=== PATIENT | female | born 1965 | race Caucasian/White ===

== ENCOUNTER 2019-09-21 15:53 | Emergency (ER) | payer OTHER ==
[2019-09-21 16:17] VITALS: BP 160/101
--- NOTE | 2019-09-21 16:37 | PHYS DOC ---
Past History Past Medical History: Hypothyroid Past Surgical History: Hysterectomy Alcohol Use: None Drug Use: None Adult General Chief Complaint Chief Complaint: LACERATION/AVULSION HPI HPI 54-year-old female presents with an injury to her left middle finger. She states she slammed her finger in a storm window opening a large laceration on the volar aspect of her third finger. She denies any other injuries. She is unsure when when her tetanus shot was. She states the pain is severe and made worse with any movement.[] Review of Systems Review of Systems Constitutional: Denies fever or chills [] Eyes: Denies change in visual acuity, redness, or eye pain [] HENT: Denies nasal congestion or sore throat [] Respiratory: Denies cough or shortness of breath [] Cardiovascular: No additional information not addressed in HPI [] GI: Denies abdominal pain, nausea, vomiting, bloody stools or diarrhea [] : Denies dysuria or hematuria [] Musculoskeletal: Denies back pain or joint pain [] Integument: Per history of present illness[] Neurologic: Denies headache, focal weakness or sensory changes [] Endocrine: Denies polyuria or polydipsia [] All other systems were reviewed and found to be within normal limits, except as documented in this note. Current Medications Current Medications Current Medications Medications (Trade) Dose Ordered Sig/Lana Start Time Stop Time Status Last Admin Dose Admin Ondansetron HCl (Zofran Odt) 4 mg 1X ONCE 09/21/19 16:45 09/21/19 16:46 UNV Oxycodone/ Acetaminophen (Percocet 5/325) 2 tab 1X ONCE 09/21/19 16:45 09/21/19 16:46 UNV Allergies Allergies Allergies Coded Allergies Type Severity Reaction Last Updated Verified No Known Drug Allergies 09/21/19 No Physical Exam Physical Exam Constitutional: Well developed, well nourished, moderate distress, non-toxic appearance. [] HENT: Normocephalic, atraumatic, bilateral external ears normal, oropharynx moist, no oral exudates, nose normal. [] Eyes: PERRLA, EOMI, conjunctiva normal, no discharge. [] Neck: Normal range of motion, no tenderness, supple, no stridor. [] Cardiovascular:Heart rate regular rhythm, no murmur [] Lungs & Thorax: Bilateral breath sounds clear to auscultation [] Abdomen: Bowel sounds normal, soft, no tenderness, no masses, no pulsatile masses. [] Skin: See laceration description below[] Back: No tenderness, no CVA tenderness. [] Extremities: There is a 4 cm laceration on the flexor aspect of the left third finger that starts proximal to the DIP crosses the joint and in his on the medial aspect of the pad. [] Neurologic: Alert and oriented X 3, normal motor function, normal sensory function, no focal deficits noted. [] Psychologic: Anxious. [] Current Patient Data Vital Signs Vital Signs Date Time Temp Pulse Resp B/P (MAP) Pulse Ox O2 Delivery O2 Flow Rate FiO2 09/21/19 16:17 65 18 96 Room Air EKG EKG [] Radiology/Procedures Radiology/Procedures [] Course & Med Decision Making Course & Med Decision Making Pertinent Labs and Imaging studies reviewed. (See chart for details) [Procedure: Laceration repair left middle finger A digital block was performed using a total of 4 mL of 1% lidocaine without epinephrine with good anesthesia then the wound was scrubbed using water and Hibiclens. I inspected the wound in a bloodless field for foreign body there was none. The patient was able to flex the DIP with no difficulty. After excellent anesthesia was obtained 7 simple interrupted 5-0 Ethilon sutures were placed with good approximation. Patient tolerated the procedure well. Neosporin was applied and a dressing was placed.] Dragon Disclaimer Dragon Disclaimer This electronic medical record was generated, in whole or in part, using a voice recognition dictation system. Departure Departure: Impression: Primary Impression: Finger laceration Disposition: 01 HOME, SELF-CARE Condition: IMPROVED Referrals: PCP,NO (PCP) Patient Instructions: Fingertip Laceration, Laceration Care, Adult Additional Instructions: Return to the emergency department in 7 days for suture removal. Scripts Hydrocodone Bit/Acetaminophen (NORCO 5-325 TABLET) 1 Each Tablet 1-2 TAB PO Q4-6HRS for PAIN, #6 TAB Prov: CHANTAL HORN DO 09/21/19 Problem Qualifiers Primary Impression: Finger laceration Encounter type: initial encounter Finger: middle finger Damage to nail status: without damage Foreign body presence: without foreign body Laterality: left Qualified Codes: S61.213A - Laceration without foreign body of left middle finger without damage to nail, initial encounter CHANTAL HORN DO Sep 21, 2019 16:37
[2019-09-21] MEDS ORDERED: ONDANSETRON ODT 4 MG TAB.RAPDIS PO ONE (16:45)
[2019-09-21] MEDS ORDERED: oxyCODONE/APAP 5/325 1 TAB TABLET PO ONE (16:45)
[2019-09-21] MEDS ORDERED: NEOMY/BACITR/POLYMYXIN OINT PACKET. TP ONE (17:00)
[2019-09-21] MEDS ORDERED: DIPHTH,PERTUSS(ACELL),TET TOX 0.5 ML DISP.SYRIN. VAX IM ONE (17:00)
--- NOTE | 2019-09-21 17:04 | RAD ---
Exam performed: 3 views left middle finger. HISTORY: Injury. DATE OF SERVICE: 09/21/2019. COMPARISON: None available FINDINGS: AP view hand as well as lateral and oblique views of the middle finger is obtained. Normal alignment is preserved. There is no acute fracture, dislocation, bony erosion or periosteal reaction. There is mild soft tissue swelling around the third digit. IMPRESSION: Diffuse soft tissue swelling without underlying acute bony abnormality involving the third digit. Electronically signed by: Mohini Vazquez MD (09/21/2019 5:01 PM) [facility]
[2019-09-21] MEDS ORDERED: HYDR-3165 PO (17:05)
== END 2019-09-21 17:22 | disposition home or self-care (01) ==
LOC: ER 15:53
DX: S61.213A Laceration without foreign body of left middle finger without damage to nail, initial encounter (principal); E03.9 Hypothyroidism, unspecified; W22.8XXA Striking against or struck by other objects, initial encounter; Y93.89 Activity, other specified; Y92.89 Other specified places as the place of occurrence of the external cause; Y99.8 Other external cause status
CPT/HCPCS: 12002; 73140; 90471; 90715; 99284; Q0162